=== PATIENT | female | born 1950 | race Caucasian/White ===

== ENCOUNTER 2018-06-18 11:16 | Outpatient (CLI) | payer MEDICARE, BC | END 2018-06-18 11:17 | disposition home or self-care (01) | LOC: BICMAMMO 11:16 | PROVIDERS: ATTEND Internal Medicine | DX: Z12.31 Encounter for screening mammogram for malignant neoplasm of breast (principal); Z80.3 Family history of malignant neoplasm of breast | CPT/HCPCS: 77063; 77067 ==

== ENCOUNTER 2018-09-30 08:06 | Outpatient (CLI) | payer MEDICARE, BC ==
--- NOTE | 2018-09-30 11:24 | MRI ---
CERVICAL SPINE MRI WITHOUT CONTRAST: Date: 09/30/18 HISTORY: Bilateral hand numbness, x2 years. Previous surgery. COMPARISON: None. TECHNIQUE: Cervical spine MRI is performed with and without intravenous Gadolinium administration. Multisequenti al, multiplanar imaging is performed. FINDINGS: Limited evaluation of the upper thoracic spine due to metallic susceptibility artifact from fusion romero rdware. Cervical vertebra have appropriate signal intensity. No STIR hyperintensity to suggest verteb ral body edema or ligamentous injury. Visualized brain parenchyma, cervicomedullary junction, cervical cord, and the upper thoracic cord romero ve a normal size and signal intensity. C2-C3: No significant disc osteophyte complex. No significant central canal stenosis. Right neural f oramen is patent. Mild left foraminal narrowing due to uncovertebral hypertrophy and facet hypertroph y. C3-C4: Broad based disc bulge does not cause any significant central canal stenosis. Mild right fora nery narrowing due to facet hypertrophy. Minimal left foraminal narrowing due to facet hypertrophy. C4-C5: No significant central canal stenosis. Minimal bilateral foraminal narrowing. There is right greater than left facet hypertrophy. C5-C6: Mild loss of disc space height. Generalized disc bulge abuts the thecal sac. Mild central can al stenosis. Mild right and moderate left foraminal narrowing due to hypertrophic changes of the unco vertebral joints and right greater than left facet hypertrophy. C6-C7: Mild loss of disc space height. No significant central canal stenosis. Neural foramina are pa tent bilaterally. C7-T1: No significant central canal stenosis. Neural foramina are patent. IMPRESSION: Degenerative changes of the cervical spine as above. POS: [facility]
== END 2018-09-30 08:07 | disposition home or self-care (01) ==
LOC: SCSMRI 08:06
PROVIDERS: ATTEND Orthopaedic Surgery Hand Surgery
DX: M48.02 Spinal stenosis, cervical region (principal); M47.22 Other spondylosis with radiculopathy, cervical region
CPT/HCPCS: 72141

== ENCOUNTER 2019-03-29 14:30 | Outpatient (CLI) | payer MEDICARE, BC ==
--- NOTE | 2019-03-29 17:57 | MRI ---
MRI OF THE RIGHT SHOULDER WITHOUT CONTRAST: 03/29/19 HISTORY: M25.511 - shoulder pain bilateral. COMPARISON: None. FINDINGS: BICEPS TENDON: There is a high grade tendinosis of the intra-articular biceps tendon with interstitial split tear. LABRUM: Tear throughout the superior labrum and the posterior superior labrum. ROTATOR CUFF: Full thickness perforation of the mid 1 cm supraspinatus tendon from the footprint with a 9 mm gap. T orn fibers are extensively tendinotic. There is interstitial delamination. There is also undersurface partial tearing of the infraspinatus tendon. BONES: No fracture. Moderate degenerative disease of the acromioclavicular joint. Normal glenoid version. Type I acromion. SOFT TISSUES: Small subacromial/subdeltoid bursal effusion. Mild synovitis of the rotator interval. MUSCLES: Muscle bulk is normal. No atrophy. IMPRESSION: 1. Full thickness rupture of the mid 1 cm fibers of the supraspinatus tendon from the footprint in a 9 mm gap. Torn fibers are moderately tendinotic with some interstitial delamination along the my otendinous junction with the supraspinatus and infraspinatus tendons. 2. Interstitial delamination type tear of the biceps tendon. 3. Superior and posterior superior labral tear. 4. Normal muscle bulk. No significant atrophy. POS: [facility]
== END 2019-03-29 14:31 | disposition home or self-care (01) ==
LOC: SCSMRI 14:30
PROVIDERS: ATTEND Orthopaedic Surgery Hand Surgery
DX: M25.511 Pain in right shoulder (principal); M25.512 Pain in left shoulder; S43.401A Unspecified sprain of right shoulder joint, initial encounter

== ENCOUNTER 2019-06-20 14:54 | Outpatient (CLI) | payer MEDICARE, BC ==
--- NOTE | 2019-06-20 16:13 | MMO ---
Bilateral MAMMO Bilat Screen [facility]. CLINICAL HISTORY: Patient is 69 years old and is seen for screening. The patient has the following family history of breast cancer: sister, at age 45. The patient has no personal history of cancer. VIEWS: The views performed were: bilateral craniocaudal with tomosynthesis and bilateral mediolateral oblique with tomosynthesis. FILMS COMPARED: The present examination has been compared to prior imaging studies performed at [facility] on 05/02/2015, 05/06/2016, 05/07/2017 and 06/18/2018. MAMMOGRAM FINDINGS: There are scattered fibroglandular densities. There are benign appearing calcifications seen in both breasts. There are no suspicious masses, suspicious calcifications, or new areas of architectural distortion. IMPRESSION: THERE IS NO MAMMOGRAPHIC EVIDENCE OF MALIGNANCY. A ROUTINE FOLLOW-UP MAMMOGRAM IN 1 YEAR IS RECOMMENDED. THE RESULTS OF THIS EXAM WERE SENT TO THE PATIENT. ACR BI-RADS Category 2 - Benign finding MAMMOGRAPHY NOTE: 1. A negative mammogram report should not delay a biopsy if a dominant of clinically suspicious mass is present. 2. Approximately 10% to 15% of breast cancers are not detected by mammography. 3. Adenosis and dense breasts may obscure an underlying neoplasm. Reported by: TOBI ZHANG MD Electonically Signed: [id number]
--- NOTE | 2019-06-20 18:15 | BD ---
DEXA BONE DENSITY: INDICATIONS: Menopausal and perimenopausal screening. FINDINGS: ONE-THIRD T-SCORE Z-SCORE RIGHT FOREARM 0.629 -1.1 0.9 MID 0.575 -0.6 1.4 UPPER DIAPHYSIS 0.416 -0.5 1.0 TOTAL 0.536 -0.8 1.1 LEFT FOREARM 0.432 -0.2 1.2 MID 0.575 -0.6 1.4 UPPER DIAPHYSIS 0.626 -1.1 0.9 TOTAL 0.542 -0.7 1.2 IMPRESSION: 1. Right forearm fracture risk is increased (WHO classification is osteopenia). 2. Left forearm fracture risk is increased (WHO classification is osteopenia). POS: [facility]
== END 2019-06-20 14:55 | disposition home or self-care (01) ==
LOC: BICMAMMO 14:54
PROVIDERS: ATTEND Obstetrics & Gynecology
DX: Z12.31 Encounter for screening mammogram for malignant neoplasm of breast (principal); N95.9 Unspecified menopausal and perimenopausal disorder
CPT/HCPCS: 77063; 77067; 77080

== ENCOUNTER 2019-07-07 07:01 | Day surgery (SDC) | payer MEDICARE, BC ==
[2019-07-06 10:58] VITALS: BMI 23.9
[2019-07-07 07:57] LABS: #Eosinphils 0.1 thou/uL (0.0-0.7); #Lymphocytes 1.3 thou/uL (1.20-3.40); #Monocytes 0.5 thou/uL (0.11-0.59); #Neutrophils 2.4 thou/uL (1.40-6.50); %Basophils 0.6 % (0.0-1.0); %Eosinophils 1.8 % (0.0-10.0); %Lymphocytes 30.6 % (21.0-51.0); %Monocytes 11.7 % (0.0-10.0); %Neutrophils 55.3 % (42.0-75.0); Hemoglobin 12.8 g/dL (12.0-16.0); Mean Corpuscular HGB CONC 34.4 g/dL (32.0-36.0); Mean Corpuscular Hemoglobin 32.5 pg (27.0-31.0); Mean Corpuscular Volume 94.5 fL (78.0-98.0); Mean Platelet Volume 8.3 fL (7.4-10.4); Platelet Count 171 thou/uL (130-400); Red Blood Cell (RBC) Count 3.93 mill/uL (4.20-5.40); White Blood Cell (WBC) Count 4.3 thou/uL (4.8-10.8)
[2019-07-07] MEDS ORDERED: Midazolam HCl 2 mg/2 ml Vial ONE (07:59)
[2019-07-07] MEDS ORDERED: Fentanyl 100 MCG/2 ML VIAL ONE (07:59)
[2019-07-07 08:03] LABS: PTT 26.7 SEC (22.9-36.1); Prothrombin Time 13.6 SEC (12.0-14.7)
[2019-07-07 08:09] LABS: Anion Gap 12 mmol/L (10-20); BUN (Urea Nitrogen) 20 mg/dL (9.8-20.1); Calc. Creatinine Clearance 68 mL/min (70-130); Calcium 9.2 mg/dL (7.8-10.44); Carbon Dioxide 26 mmol/L (23-31); Chloride 107 mmol/L (98-107); Estimated GFR-MDRD 75; Glucose 88 mg/dL (80-115); Potassium 3.9 mmol/L (3.5-5.1); Sodium 141 mmol/L (136-145)
--- NOTE | 2019-07-07 08:16 | RAD ---
PA AND LATERAL CHEST: HISTORY: Preop. COMPARISON: 11/24/2016 study. FINDINGS: Heart size is upper limits of normal. Mediastinal structures are unremarkable. The lungs are clear of infiltrates. Bilateral pedicle screws and vertical connecting rods extend over the thoracolumbar spine. IMPRESSION: Borderline heart size. No active intrathoracic disease. POS: [facility]
[2019-07-07] MEDS ORDERED: HYDROcodone/Acetaminophen 10/325 mg Tablet PO PRN ×2 (09:23)
[2019-07-07] MEDS ORDERED: Zolpidem Tartrate 5 MG TAB PO PRN (09:23)
[2019-07-07] MEDS ORDERED: Ondansetron PF 4 MG/2 ML Vial IVP PRN (09:23)
[2019-07-07] MEDS ORDERED: Promethazine HCl 25 MG/ML VIAL IM PRN (09:23)
[2019-07-07] MEDS ORDERED: Ropivacaine 0.2% 550 ML 550 ML NERVE BLCK SCH (09:23)
[2019-07-07] MEDS ORDERED: traMADol HCl 50 MG TAB PO PRN ×2 (09:23)
[2019-07-07] MEDS ORDERED: Bupivacaine/Epinephrine 0.25% 30 ML VIAL ONE (10:32)
[2019-07-07] MEDS ORDERED: Ketorolac Tromethamine 30 MG/ML VIAL IVP SCH (12:00)
[2019-07-07] MEDS ORDERED: Ropivacaine 0.2% HCl/PF (40 MG/20 ML VIAL) ONE (13:48)
[2019-07-07] MEDS ORDERED: Ropivacaine 0.5% HCl/PF (150 MG/30 ML VIAL) ONE (13:48)
[2019-07-07] MEDS ORDERED: Rocuronium Bromide 10 MG/ML (10ML VIAL) ONE (14:48)
[2019-07-07] MEDS ORDERED: Lidocaine 1% PF 5 ML VIAL ONE (14:48)
[2019-07-07] MEDS ORDERED: ePHEDrine 50 MG/ML VIAL ONE (14:48)
[2019-07-07] MEDS ORDERED: PROPOFOL 200 MG/20 ML VIAL ONE (14:48)
[2019-07-07] MEDS ORDERED: Glycopyrrolate 0.2 MG/ML 5 ML SYRINGE ONE (14:48)
[2019-07-07] MEDS ORDERED: Dexamethasone 20 MG/5 ML VIAL ONE (14:48)
--- NOTE | 2019-07-07 19:23 | OP ---
DATE OF PROCEDURE: 07/07/2019 PREOPERATIVE DIAGNOSES: Full-thickness right rotator cuff tear with some biceps tendinosis, superior labral changes. POSTOPERATIVE DIAGNOSES: Full-thickness supraspinatus tear with posterior edge of infraspinatus with superior labral degenerative changes and biceps tendinosis. PROCEDURES PERFORMED: 1. Right rotator cuff repair. 2. Biceps tenodesis. SALES REPRESENTATIVE SUPERVISOR: None. ANESTHESIOLOGIST: Hussain Stewart. ANESTHESIA: The patient received general endotracheal intubation, interscalene block. ESTIMATED BLOOD LOSS: 30 mL. TOURNIQUET TIME: None. IMPLANTS: Arthrex 5.5 corkscrew, 4.75 SwiveLock, and Arthrex 7 x 19.5 SwiveLock BioComposite. ANTIBIOTICS: Ancef 2 g. COMPLICATIONS: None. HISTORY OF PRESENT ILLNESS: Ms. Del Castillo is a pleasant 69-year-old female, who presented to me with right shoulder pain for 2 years. The patient had several rounds of therapy, continued pain, and the patient is retired from [employer]. The patient had pain with overhead elevation of 150 degrees and external rotation of 60. The patient had an MRI, which showed a full-thickness rotator cuff tear. I discussed risks and benefits of a right rotator cuff repair with biceps tenodesis including pain, scar, bleeding, infection, damage to vital structures, decreased range of motion and strength, need for further surgeries, Mychal deformity, loss of life or limb. The patient understood the risks and benefits of the procedure and elected to proceed. DESCRIPTION OF PROCEDURE: Time-out was performed designating the patient's right upper extremity as the operative site based on site, consents, and marking. After time-out, the patient's right upper extremity was prepped and draped in a sterile fashion. Posterior working portal was placed and visualized intra-articularly within the joint. She had some degenerative changes to her superior labrum as well as fraying and partial tearing of her biceps. The humerus looked good throughout its course. No loose bodies. Subscapularis was intact with some leading edge tearing, which I debrided. The rotator cuff tear was noted intra-articularly. I moved to tenotomize the biceps for tenodesis as I did not like the look of the degeneration of labrum or the biceps. We cut the biceps and medially retracted. We then moved subacromially and debrided off the bursa and exposed the rotator cuff tear. I debrided the footprint with bleeding bone. I placed an awl and placed a 5.5 corkscrew into the footprint, passed four sutures in a horizontal mattress fashion, tied those down, used another lateral row to compress the rotator cuff down. I moved anteriorly, found the biceps within its groove. I cleaned a spot out for the biceps, drilled 30 mm with a 75 screw and anchored the biceps down with a 7.0 tenodesis screw. I completely debrided off the top of the biceps as it was slightly prominent. I washed, I closed with 3-0 nylon. The patient will begin elbow, wrist, and hand motion, no active elbow flexion against resistance for possible rupture of biceps. Follow up with me in clinic in 10 to 12 days. Job ID: [id number] [facility]ERC[facility]
--- NOTE | 2019-07-10 17:13 | EKG ---
Test Reason : PREOP Blood Pressure : / mmHG Vent. Rate : 065 BPM Atrial Rate : 065 BPM P-R Int : 182 ms QRS Dur : 070 ms QT Int : 422 ms P-R-T Axes : 017 025 008 degrees QTc Int : 438 ms Normal sinus rhythm Inferior infarct , age undetermined Abnormal ECG No previous ECGs available Confirmed by ALEJANDRA JOHNSON (2) on 07/10/2019 5:13:33 PM Referred By: NATHANAEL Confirmed By:ALEJANDRA JOHNSON
== END 2019-07-07 14:05 | disposition home or self-care (01) ==
LOC: SDC 07:01
PROVIDERS: ATTEND Orthopaedic Surgery
PROC: 0LQ14ZZ Repair Right Shoulder Tendon, Percutaneous Endoscopic Approach (ICD-10-PCS; principal; 2019-07-07)
PROC: 0LS14ZZ Reposition Right Shoulder Tendon, Percutaneous Endoscopic Approach (ICD-10-PCS; 2019-07-07)
PROC: 3E0T3BZ Introduction of Anesthetic Agent into Peripheral Nerves and Plexi, Percutaneous Approach (ICD-10-PCS; 2019-07-07)
DX: M75.121 Complete rotator cuff tear or rupture of right shoulder, not specified as traumatic (principal); S46.221A Laceration of muscle, fascia and tendon of other parts of biceps, right arm, initial encounter; M75.21 Bicipital tendinitis, right shoulder; M24.811 Other specific joint derangements of right shoulder, not elsewhere classified; G89.18 Other acute postprocedural pain; G56.20 Lesion of ulnar nerve, unspecified upper limb; G56.03 Carpal tunnel syndrome, bilateral upper limbs; Z79.1 Long term (current) use of non-steroidal anti-inflammatories (NSAID); Z79.52 Long term (current) use of systemic steroids; Z79.899 Other long term (current) drug therapy; Z98.1 Arthrodesis status
CPT/HCPCS: 29827; 29828; 64416; 71046; 80048; 85025; 85610; 85730; 93005; A4306; C1713 ×3; 36415; 93010; J0690; J1100; J2001; J2250; J2704; J2795; J3010; J3490